=== PATIENT | female | born 1955 | race Caucasian/White ===

== ENCOUNTER 2017-01-12 22:58 | Inpatient (IN) | payer BC ==
[2017-01-12] MEDS ORDERED: Ondansetron 4 MG/2 ML SDV IVPUSH ONE (23:38)
[2017-01-12] MEDS ORDERED: LORazepam 2 MG/ML MDV IVPUSH ONE (23:38)
[2017-01-12] MEDS ORDERED: Sodium Chloride 0.9% 1,000 ML IV SCH (23:45)
[2017-01-13] MEDS ORDERED: Metoclopramide 10 MG/2 ML SDV IV PRN (00:22)
--- NOTE | 2017-01-13 00:37 | EDM.PDOC ---
[id number]: ABD PAIN VOMITING Time Seen by Provider: 01/12/17 23:15 Source of Information: Reports: Patient, Family History Limitations: Reports: No Limitations - History of Present Illness INITIAL COMMENTS - FREE TEXT/NARRATIVE: 61-year-old female was doing fine up until 5 hours ago when she developed lower abdominal cramping followed by intense nausea and vomiting. The pain seems to have resolved but the nausea and vomiting is persistent. No fevers or chills. No abdominal distention, no diarrhea. She did have one normal bowel movement since the pain started. Onset: Sudden (5 hours ago) Duration: Hour(s): (Ongoing for 5 hours) Location: Reports: Abdomen Severity: Moderate Associated Symptoms: Reports: Malaise, Nausea/Vomiting. Denies: Chest Pain, Cough, Fever/Chills, Shortness of Breath Abdomen Pain Score (Numeric/FACES): 3 - Related Data Allergies Allergy/AdvReac Type Severity Reaction Status Date / Time No Known Allergies Allergy Verified 06/23/16 07:52 Home Meds: Home Meds Acetaminophen [Tylenol Arthritis Pain] 650 mg PO Q8H PRN 11/01/14 [History] B Complex With Vitamin C [B-Complex with C] 1 each PO DAILY 11/01/14 [History] Cholecalciferol (Vitamin D3) [Vitamin D3] 10,000 unit PO DAILY 11/01/14 [History ] Cyanocobalamin (Vitamin B-12) [Vitamin B-12] 2,500 mcg SL DAILY 11/01/14 [ History] DULoxetine [Cymbalta] 120 mg PO DAILY 11/01/14 [History] Iron,Carbonyl/Ascorbic Acid [Vitron-C Tablet] 2 each PO DAILY 11/01/14 [History] Multivitamin with Minerals [Multivitamins with Minerals] 1 each PO DAILY [History] [place]-3S/DHA/Epa/Fish Oil/D3 [Fish Oil + D3 Softgel] 1 each PO DAILY 11/01/14 [ History] Thiamine [Vitamin B-1] 100 mg PO BEDTIME 11/01/14 [History] Calcium Citrate 1 tab PO DAILY 06/12/16 [History] traZODone 25 - 100 mg PO BEDTIME PRN 06/12/16 [History] Past Medical History HEENT History: Reports: Impaired Vision Respiratory History: Reports: Sleep Apnea Gastrointestinal History: Reports: GERD Genitourinary History: Reports: None NURSING ADMIN History: Reports: Endometriosis, Other (See Below) 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 Musculoskeletal History: Reports: Fracture, Neck Pain, Chronic, Osteoarthritis Neurological History: Reports: None Psychiatric History: Reports: Anxiety, Depression Endocrine/Metabolic History: Reports: Osteopenia Hematologic History: Reports: Folic Acid Immunologic History: Reports: None Dermatologic History: Reports: None - Infectious Disease History Infectious Disease History: Reports: Chicken Pox - Past Surgical History GI Surgical History: Reports: Bariatric Procedure, Colonoscopy, EGD, Esophageal Dilatation, Roxie Fundoplication Female Surgical History: Reports: Hysterectomy, Salpingo-Oophorectomy Endocrine Surgical History: Reports: None Musculoskeletal Surgical History: Reports: Arthroscopic Knee, Knee Replacement, Shoulder Surgery Social & Family History - Tobacco Use Smoking Status *Q: Never Smoker Years of Tobacco use: 18 Packs/Tins Daily: 1 Used Tobacco, but Quit: Yes Month Tobacco Last Used: 07/1990 Second Hand Smoke Exposure: No - Caffeine Use Caffeine Use: Reports: Coffee - Alcohol Use Days Per Week of Alcohol Use: 0 Number of Drinks Per Day: 4 Total Drinks Per Week: 0 - Recreational Drug Use Recreational Drug Use: No ED ROS GENERAL - Review of Systems Review Of Systems: See Below Constitutional: Reports: Malaise. Denies: Fever, Chills HEENT: Reports: No Symptoms Respiratory: Reports: No Symptoms Cardiovascular: Reports: No Symptoms GI/Abdominal: Reports: Abdominal Pain (Lower abdomen). Denies: Constipation, Diarrhea Skin: Reports: No Symptoms Neurological: Reports: No Symptoms ED EXAM, GI/ABD - Physical Exam Exam: See Below Exam Limited By: No Limitations General Appearance: Alert, Mild Distress (Looks very uncomfortable, actively retching and vomiting) Eyes: Bilateral: Normal Appearance (No jaundice) Respiratory/Chest: No Respiratory Distress, Lungs Clear Cardiovascular: Regular Rate, Rhythm GI/Abdominal: Hypoactive Bowel Sounds, Tenderness (Some tenderness to palpation across the lower abdomen no focal guarding or rebound) Neurological: Alert, Oriented Psychiatric: Anxious Skin Exam: Warm, Dry Course - Vital Signs Last Recorded V/S: Last Vital Signs Temp 96.9 F 01/12/17 23:11 Pulse 76 01/13/17 02:45 Resp 18 01/12/17 23:11 BP 151/83 H 07/05/17 02:45 Pulse Ox 96 01/13/17 03:11 - Orders/Labs/Meds Orders: Active Orders 24 hr Category Date Time Status Abdomen Pelvis w Cont [CT] Stat Exams 01/13/17 00:44 Taken Metoclopramide [Reglan] Med 01/13/17 00:22 Active 10 mg IV ONETIME PRN Sodium Chloride 0.9% [Normal Saline] 1,000 ml Med 01/12/17 23:45 Active IV .BOLUS Medication Orders Hydromorphone HCl (Dilaudid Snuff Grinder 15 Mg In Ns 30 Ml) 0 mg IV ASDIRECTED PRN; Protocol PRN Reason: Pain Sodium Chloride (Normal Saline) 1,000 mls @ 1,000 mls/hr IV .BOLUS ANA Last Admin: 01/12/17 23:51 Dose: 1,000 mls/hr Dextrose/Lactated Ringer's (Dextrose 5%-Lactated Ringers) 1,000 mls @ 200 mls/ hr IV ASDIRECTED ANA Metoclopramide HCl (Reglan) 10 mg IV ONETIME PRN PRN Reason: Vomiting Last Admin: 01/13/17 00:29 Dose: 10 mg Metoclopramide HCl (Reglan) 10 mg IVPUSH Q6H ANA Naloxone HCl (Narcan) 0.4 mg IVPUSH Q2M PRN PRN Reason: Respiratory Distress Labs: Laboratory Tests 01/12/17 01/12/17 Range/Units 23:39 23:39 WBC 10.5 (4.5-11.0) K/uL RBC 4.29 (3.30-5.50) M/uL Hgb 13.8 (12.0-15.0) g/dL Hct 40.4 (36.0-48.0) % MCV 94 (80-98) fL MCH 32 H (27-31) pg MCHC 34 (32-36) % Plt Count (150-400) K/uL Neut % (Auto) 85 H (36-66) % Lymph % (Auto) 8 L (24-44) % [place] % (Auto) 6 (2-6) % Eos % (Auto) 1 L (2-4) % Baso % (Auto) 0 (0-1) % Sodium 140 (140-148) mmol/L Potassium 4.6 (3.6-5.2) mmol/L Chloride 106 (100-108) mmol/L Carbon Dioxide 25 (21-32) mmol/L Anion Gap 8.9 (5.0-14.0) mmol/L BUN 13 (7-18) mg/dL Creatinine 0.6 (0.6-1.0) mg/dL Est Cr Clr Drug Dosing 83.95 mL/min Estimated GFR (MDRD) > 60 (>60) Glucose 157 H (74-106) mg/dL Calcium 8.7 (8.5-10.1) mg/dL Total Bilirubin 0.3 (0.2-1.0) mg/dL AST 24 (15-37) U/L ALT 24 (12-78) U/L Alkaline Phosphatase 51 (46-116) U/L Total Protein 6.4 (6.4-8.2) g/dL Albumin 3.5 (3.4-5.0) g/dL Globulin 2.9 (2.3-3.5) g/dL Albumin/Globulin Ratio 1.2 (1.2-2.2) Amylase 79 (25-115) U/L Lipase 184 (73-393) U/L Meds: Medications Generic Name Dose Route Start Last Admin Trade Name Freq PRN Reason Stop Dose Admin Hydromorphone HCl 0 mg 01/13/17 03:04 Dilaudid Snuff Grinder 15 Mg In Ns 30 Ml IV ASDIRECTED PRN Pain Protocol Sodium Chloride 1,000 mls @ 1,000 mls/hr 01/12/17 23:45 01/12/17 23:51 Normal Saline IV 1,000 mls/hr .BOLUS ANA Administration Dextrose/Lactated Ringer's 1,000 mls @ 200 mls/hr 01/13/17 03:15 Dextrose 5%-Lactated Ringers IV ASDIRECTED ANA Metoclopramide HCl 10 mg 01/13/17 00:22 01/13/17 00:29 Reglan IV 10 mg ONETIME PRN Administration Vomiting Metoclopramide HCl 10 mg 01/13/17 03:15 Reglan IVPUSH Q6H ANA Naloxone HCl 0.4 mg 01/13/17 03:04 Narcan IVPUSH Q2M PRN Respiratory Distress Discontinued Medications Generic Name Dose Route Start Last Admin Trade Name Freq PRN Reason Stop Dose Admin Hydromorphone HCl 0.5 mg 01/13/17 02:32 01/13/17 02:37 Dilaudid IVPUSH 01/13/17 02:33 0.5 mg ONETIME ONE Administration Sodium Chloride 75 mls @ 3 mls/sec 01/13/17 00:53 01/13/17 01:05 Normal Saline IV 01/13/17 00:54 3 mls/sec ASDIRECTED STA Administration Promethazine HCl 12.5 mg/ 50.5 mls @ 200 mls/hr 01/13/17 02:32 01/13/17 02:37 Sodium Chloride IV 01/13/17 02:47 200 mls/hr ONETIME ONE Administration Iopamidol 100 ml 01/13/17 00:52 01/13/17 01:05 Isovue-300 (61%) IV 01/13/17 00:53 100 ml . DIRECTED STA Administration Lorazepam 0.5 mg 01/12/17 23:38 01/12/17 23:50 Ativan IVPUSH 01/12/17 23:39 0.5 mg ONETIME ONE Administration Ondansetron HCl 4 mg 01/12/17 23:38 01/12/17 23:51 Zofran IVPUSH 01/12/17 23:39 4 mg ONETIME ONE Administration - Re-Assessments/Exams Free Text/Narrative Re-Assessment/Exam: 01/13/17 00:36 An IV was started in 1000 mL of normal saline was given along with 4 mg of Zofran and 0.5 mg of Ativan. There was some initial improvement but the patient again began retching so 10 mg of IV Reglan was given. CBC CMP amylase and lipase were obtained. 01/13/17 02:14 The Reglan seemed to hold her persistent nausea and she began to rest but continued to feel nauseated. A CT scan of the abdomen was obtained with IV contrast and confirmed a distal small bowel obstruction. I discussed her case with Dr. Jaime, he accepted her for admission and orders were written. She was resting quietly when discharged to the floor. Departure - Departure Time of Disposition: 02:53 Disposition: Admitted As Inpatient 65 Condition: Fair Clinical Impression: Small bowel obstruction Abdominal pain Qualifiers: Abdominal location: lower abdomen, unspecified Qualified Code(s): R10.30 - Lower abdominal pain, unspecified - Discharge Information - My Orders Last 24 Hours: My Active Orders 01/12/17 23:45 Sodium Chloride 0.9% [Normal Saline] 1,000 ml IV .BOLUS 01/13/17 00:22 Metoclopramide [Reglan] 10 mg IV ONETIME PRN 01/13/17 00:44 Abdomen Pelvis w Cont [CT] Stat - Assessment/Plan Last 24 Hours: My Active Orders 01/12/17 23:45 Sodium Chloride 0.9% [Normal Saline] 1,000 ml IV .BOLUS 01/13/17 00:22 Metoclopramide [Reglan] 10 mg IV ONETIME PRN 01/13/17 00:44 Abdomen Pelvis w Cont [CT] Stat
[2017-01-13] MEDS ORDERED: Iopamidol 612 MG/ML 100 ML Bottle IV STA (00:52)
[2017-01-13] MEDS ORDERED: Sodium Chloride 0.9% 75 ML IV STA (00:53)
[2017-01-13] MEDS ORDERED: Promethazine 12.5 MG in Sodium Chloride 0.9% 50 ML IV ONE (02:32)
[2017-01-13] MEDS ORDERED: HYDROmorphone 0.5 MG/0.5 ML Syringe IVPUSH ONE (02:32)
[2017-01-13] MEDS ORDERED: HYDROmorphone/Normal Saline 15 MG/30 ML PCA IV PRN (03:04)
[2017-01-13] MEDS ORDERED: Naloxone 0.4 MG/ML SDV IVPUSH PRN ×2 (03:04→07:22)
[2017-01-13] MEDS ORDERED: Metoclopramide 10 MG/2 ML SDV IVPUSH SCH (03:15)
[2017-01-13] MEDS ORDERED: Dextrose 5%-Lactated Ringers 1,000 ML IV SCH (03:15)
[2017-01-13] MEDS ORDERED: traZODone 50 MG Tab PO PRN (07:35)
--- NOTE | 2017-01-13 08:23 | PCM.HP ---
H&P History of Present Illness - General Date of Service: 01/13/17 Admit Problem/Dx: Admission Diagnosis/Problem Admission Diagnosis/Problem Abdominal pain Source of Information: Patient History Limitations: Reports: Other (sedated from pain medication) - History of Present Illness Initial Comments - Free Text/Narative: Susan was admitted around 0300 after coming to the ED with sudden onset of left lower quadrant abdominal pain that radiated to her right lower abdomen and then to bilateral upper abdominal quadrants. Pain was a 10/10 on admission. Sharp stabbing and squeezing. Pain now is a O/10. Originally pain was associated with nausea and dry heaves. Currently no associated signs and symptoms. Onset of Symptoms: Reports: Other (01/12/17 ) Duration of Symptoms: Reports: Day(s): (1 ) Location: Reports: Abdomen Quality: Reports: Pressure, Sharp, Stabbing Severity: Severe Improves with: Reports: Medication Worsens with: Reports: None Context: Reports: Other (sleepy ) Associated Symptoms: Reports: Other (nausea) Abdomen Pain Score (Numeric/FACES): 0 - Related Data Allergies/Adverse Reactions: Allergies Allergy/AdvReac Type Severity Reaction Status Date / Time No Known Allergies Allergy Verified 06/23/16 07:52 Home Medications: Home Meds Acetaminophen [Tylenol Arthritis Pain] 650 mg PO Q8H PRN 11/01/14 [History] B Complex With Vitamin C [B-Complex with C] 1 each PO DAILY 11/01/14 [History] Cholecalciferol (Vitamin D3) [Vitamin D3] 10,000 unit PO DAILY 11/01/14 [History ] Cyanocobalamin (Vitamin B-12) [Vitamin B-12] 2,500 mcg SL DAILY 11/01/14 [ History] DULoxetine [Cymbalta] 120 mg PO DAILY 11/01/14 [History] Iron,Carbonyl/Ascorbic Acid [Vitron-C Tablet] 2 each PO DAILY 11/01/14 [History] Multivitamin with Minerals [Multivitamins with Minerals] 1 each PO DAILY [History] [place]-3S/DHA/Epa/Fish Oil/D3 [Fish Oil + D3 Softgel] 1 each PO DAILY 11/01/14 [ History] Thiamine [Vitamin B-1] 100 mg PO BEDTIME 11/01/14 [History] Calcium Citrate 1 tab PO DAILY 06/12/16 [History] traZODone 25 - 100 mg PO BEDTIME PRN 06/12/16 [History] Past Medical History HEENT History: Reports: Impaired Vision Respiratory History: Reports: Sleep Apnea Gastrointestinal History: Reports: GERD Genitourinary History: Reports: None FLOORS BUFFER History: Reports: Endometriosis, Other (See Below) 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 Musculoskeletal History: Reports: Fracture, Neck Pain, Chronic, Osteoarthritis Neurological History: Reports: None Psychiatric History: Reports: Anxiety, Depression Endocrine/Metabolic History: Reports: Osteopenia Hematologic History: Reports: Folic Acid Immunologic History: Reports: None Dermatologic History: Reports: None - Infectious Disease History Infectious Disease History: Reports: Chicken Pox - Past Surgical History GI Surgical History: Reports: Bariatric Procedure, Colonoscopy, EGD, Esophageal Dilatation, Roxie Fundoplication Female Surgical History: Reports: Hysterectomy, Salpingo-Oophorectomy Endocrine Surgical History: Reports: None Musculoskeletal Surgical History: Reports: Arthroscopic Knee, Knee Replacement, Shoulder Surgery Social & Family History - Tobacco Use Smoking Status *Q: Never Smoker Years of Tobacco use: 18 Packs/Tins Daily: 1 Used Tobacco, but Quit: Yes Month Tobacco Last Used: 07/1990 Second Hand Smoke Exposure: No - Caffeine Use Caffeine Use: Reports: Coffee - Alcohol Use Days Per Week of Alcohol Use: 0 Number of Drinks Per Day: 4 Total Drinks Per Week: 0 - Recreational Drug Use Recreational Drug Use: No H&P Review of Systems - Review of Systems: Review Of Systems: ROS reveals no pertinent complaints other than HPI. General: Reports: Other (sleepy from the pain medication) HEENT: Reports: No Symptoms Pulmonary: Reports: No Symptoms Cardiovascular: Reports: No Symptoms Gastrointestinal: Reports: Other (no pain right now) Genitourinary: Reports: No Symptoms Musculoskeletal: Reports: No Symptoms Skin: Reports: Wound (superficial dog bite right upper arm from her dog yesterday. Wound is weeping a pink serous drainage.) Psychiatric: Reports: No Symptoms Neurological: Reports: No Symptoms Hematologic/Lymphatic: Reports: No Symptoms Immunologic: Reports: No Symptoms Exam - Exam Exam: See Below - Vital Signs Vital Signs: Last Vital Signs Temp 99 F 01/13/17 07:15 Pulse 87 01/13/17 07:15 Resp 17 01/13/17 07:15 BP 102/62 01/13/17 07:15 Pulse Ox 90 L 01/13/17 07:24 Weight: 173 lb 1.006 oz - Exam Quality Assessment: DVT Prophylaxis General: Sedated, Lethargic HEENT: Pupils Equal Neck: Supple, Trachea Midline Lungs: Clear to Auscultation, Normal Respiratory Effort Cardiovascular: Regular Rate, Regular Rhythm Abdomen: Soft (and nontender) (Female) Exam: Deferred Rectal (Female) Exam: Deferred Back Exam: Normal Inspection Extremities: Normal Inspection Skin: Wound (superficial dog bite right upper arm. ) Neurological: Cranial Nerves Intact, Reflexes Equal Bilateral Neuro Extensive - Mental Status: Other (sedated from pain medication) Neuro Extensive - Motor, Sensory, Reflexes: CN II-XII Intact Psychiatric: Other (as above) - Patient Data Lab Results Last 24 hrs: Laboratory Results - last 24 hr 01/13/17 01/13/17 Range/Units 04:20 04:20 WBC 7.3 (4.5-11.0) K/uL RBC 4.06 (3.30-5.50) M/uL Hgb 12.8 (12.0-15.0) g/dL Hct 39.1 (36.0-48.0) % MCV 96 (80-98) fL MCH 32 H (27-31) pg MCHC 33 (32-36) % Plt Count 191 (150-400) K/uL Lactic Acid 1.6 (0.4-2.0) mmol/L Result Diagrams: 01/13/17 04:20 01/12/17 23:39 *Q Meaningful Use (ADM) - VTE *Q VTE Criteria *Q: - Stroke *Q Stroke Criteria *Q: - AMI *Q AMI Criteria *Q: Problem List Initiated/Reviewed/Updated: Yes Orders Last 24hrs: Active Orders 24 hr Category Date Time Status Communication Order [RC] STAT Care 01/13/17 03:04 Active Notify Provider [RC] PRN Care 01/13/17 03:04 Active LEAD SECURITY OFFICER Record [RC] PER UNIT ROUTINE Care 01/13/17 03:04 Active Pulse Oximetry [RC] CONTINUOUS Care 01/13/17 03:04 Active Vital Signs [RC] Q4H Care 01/13/17 03:02 Active NPO Now [Nothing per Oral Now Diet] [DIET] Diet 01/13/17 Breakfast Active Abdomen 2V AP Flat Upright [CR] DAILY Exams 01/14/17 04:00 Ordered Abdomen 2V AP Flat Upright [CR] DAILY Exams 01/15/17 04:00 Ordered Abdomen 2V AP Flat Upright [CR] DAILY Exams 01/16/17 04:00 Ordered DULoxetine [Cymbalta] Med 01/13/17 09:00 Active 120 mg PO DAILY Dextrose 5%-Lactated Ringers 1,000 ml Med 01/13/17 07:34 Active IV ASDIRECTED HYDROmorphone/Normal Saline [Dilaudid LEAD SECURITY OFFICER 15 MG in NS Med 01/13/17 03:04 Active 30 ML] See Protocol IV ASDIRECTED PRN MVI, Adult with Vitamin K [Infuvite Adult] 10 ml Med 01/13/17 10:00 Active Thiamine [Vitamin B-1] 100 mg Magnesium Sulfate [Magnesium Sulfate 50%] 2 gm Folic Acid 1 mg Lactated Ringers [Ringers, Lactated] 1,000 ml IV ONETIME Metoclopramide [Reglan] Med 01/13/17 06:00 Active 10 mg IVPUSH Q6H Naloxone [Narcan] Med 01/13/17 07:22 Active 0.1 mg IVPUSH Q5M PRN traZODone Med 01/13/17 07:35 Active 25 - 100 mg PO BEDTIME PRN Medication Discontinuation Instructions [OM.PC] Stat Oth 01/13/17 03:04 Ordered Code Status [Resuscitation Status] Routine Resus Stat 01/13/17 03:01 Ordered Medication Orders Duloxetine HCl (Cymbalta) 120 mg PO DAILY ANA Hydromorphone HCl (Dilaudid Purchasing Intern 15 Mg In Ns 30 Ml) 0 mg IV ASDIRECTED PRN; Protocol PRN Reason: Pain Last Admin: 01/13/17 05:08 Dose: 15 mg Dextrose/Lactated Ringer's (Dextrose 5%-Lactated Ringers) 1,000 mls @ 150 mls/ hr IV ASDIRECTED ANA Multivitamins/Minerals 10 ml/Thiamine HCl 100 mg/ Magnesium Sulfate 2 gm/ Folic Acid 1 mg / Lactated Ringer's 1,015.2 mls @ 150 mls/hr IV ONETIME ONE Stop: 01/13/17 16:46 Metoclopramide HCl (Reglan) 10 mg IVPUSH Q6H ANA Naloxone HCl (Narcan) 0.1 mg IVPUSH Q5M PRN PRN Reason: Respiratory Distress Trazodone HCl (Trazodone) 25 - 100 mg PO BEDTIME PRN PRN Reason: Sleep Assessment/Plan Comment:: Assessment: Partial Small Bowel Obstruction Plan: Flat and Upright of Abdominal X Rays in AM Home meds were restarted Ice chips and sips of water with medication Change dressing on dog bite bid If abdominal X Ray is negative in AM, pain hasn't returned and patient able to eat will be discharged tomorrow. Estephanie ROSALES C
[2017-01-13] MEDS ORDERED: MVI, Adult with Vitamin K 10 ML, Thiamine 100 MG, Magnesium Sulfate 2 GM, Folic Acid 1 ... IV ONE ×10 (09:00→10:00)
[2017-01-13] MEDS: Metoclopramide 10 MG/2 ML SDV IVPUSH SCH ×3 (09:42→17:11)
[2017-01-13] MEDS: DULoxetine 30 MG Cap PO SCH (09:43)
[2017-01-13] MEDS: Dextrose 5%-Lactated Ringers 1,000 ML IV SCH ×2 (15:57→22:45)
[2017-01-14] MEDS: Metoclopramide 10 MG/2 ML SDV IVPUSH SCH ×2 (00:17→05:28)
[2017-01-14] MEDS: Dextrose 5%-Lactated Ringers 1,000 ML IV SCH (05:28)
[2017-01-14 07:20] VITALS: BP 135/96
[2017-01-14] MEDS: DULoxetine 30 MG Cap PO SCH (08:02)
--- NOTE | 2017-01-14 08:13 | PCM.DCSUM1 ---
Discharge Summary - Hospital Course Free Text/Narrative:: Susan was admitted with abdominal pain on 01/12/17. She was treated conservatively with IV fluids, NPO and rest. She had a large BM this am. She has been pain free, activity good, vital signs stable and ready to be discharged to home. HPI Initial Comments: HENT: Negative NECK: Supple negative for lymphadenopathy HEART: RRR without murmur LUNGS: Clear in upper and lower right and left lobes ABD: Soft and nontender EXT: Negative SKIN: Clear NEURO: Cranial Nerves II to XII intact PSYCH: Mood and affect appropriate - Discharge Data Discharge Date: 01/14/17 Discharge Disposition: Home, Self-Care 01 Condition: Good - Patient Instructions Diet: Drink 8-10+ Glasses/Day, Full Liquid Diet Activity: As Tolerated Showering/Bathing: November Shower Notify Provider of: Increased Pain, Nausea and/or Vomiting - Discharge Plan Home Medications: Home Meds Acetaminophen [Tylenol Arthritis Pain] 650 mg PO Q8H PRN 11/01/14 [History] B Complex With Vitamin C [B-Complex with C] 1 each PO DAILY 11/01/14 [History] Cholecalciferol (Vitamin D3) [Vitamin D3] 10,000 unit PO DAILY 11/01/14 [History ] Cyanocobalamin (Vitamin B-12) [Vitamin B-12] 2,500 mcg SL DAILY 11/01/14 [ History] DULoxetine [Cymbalta] 120 mg PO DAILY 11/01/14 [History] Iron,Carbonyl/Ascorbic Acid [Vitron-C Tablet] 2 each PO DAILY 11/01/14 [History] Multivitamin with Minerals [Multivitamins with Minerals] 1 each PO DAILY [History] [place]-3S/DHA/Epa/Fish Oil/D3 [Fish Oil-Vit D3 Softgel] 1 each PO DAILY 11/01/14 [History] Thiamine [Vitamin B-1] 100 mg PO BEDTIME 11/01/14 [History] Calcium Citrate 1 tab PO DAILY 06/12/16 [History] traZODone 25 - 100 mg PO BEDTIME PRN 06/12/16 [History] Patient Handouts: Constipation, Adult Referrals: Estephanie Sanford PA-C [Physician Director Of Psychology] - 01/20/17 11:00 am PCP,None [Primary Care Provider] - - Discharge Summary/Plan Comment DC Time >30 min.: Yes - Patient Data Vitals - Most Recent: Last Vital Signs Temp 98.7 F 01/14/17 07:18 Pulse 71 01/14/17 07:18 Resp 16 01/14/17 07:18 BP 135/96 H 01/14/17 07:18 Pulse Ox 93 L 01/14/17 07:48 Weight - Most Recent: 173 lb 1.006 oz I&O - Last 24 hours: Intake & Output 01/13/17 01/14/17 01/14/17 22:59 06:59 14:59 Intake Total 2229 1755 Output Total 400 Balance 1829 1755 Med Orders - Current: Current Medications Duloxetine HCl (Cymbalta) 120 mg PO DAILY ANA Last Admin: 01/14/17 08:02 Dose: 120 mg Metoclopramide HCl (Reglan) 10 mg IVPUSH Q6H ANA Last Admin: 01/14/17 05:28 Dose: 10 mg Naloxone HCl (Narcan) 0.1 mg IVPUSH Q5M PRN PRN Reason: Respiratory Distress Trazodone HCl (Trazodone) 25 - 100 mg PO BEDTIME PRN PRN Reason: Sleep Discontinued Medications Hydromorphone HCl (Dilaudid) 0.5 mg IVPUSH ONETIME ONE Stop: 01/13/17 02:33 Last Admin: 01/13/17 02:37 Dose: 0.5 mg Hydromorphone HCl (Dilaudid Fur Stylist 15 Mg In Ns 30 Ml) 0 mg IV ASDIRECTED PRN; Protocol PRN Reason: Pain Last Admin: 01/13/17 05:08 Dose: 15 mg Sodium Chloride (Normal Saline) 1,000 mls @ 1,000 mls/hr IV .BOLUS ANA Last Admin: 01/12/17 23:51 Dose: 1,000 mls/hr Sodium Chloride (Normal Saline) 75 mls @ 3 mls/sec IV ASDIRECTED STA Stop: 01/13/17 00:54 Last Admin: 01/13/17 01:05 Dose: 3 mls/sec Promethazine HCl 12.5 mg/ (Sodium Chloride) 50.5 mls @ 200 mls/hr IV ONETIME ONE Stop: 01/13/17 02:47 Last Admin: 01/13/17 02:37 Dose: 200 mls/hr Dextrose/Lactated Ringer's (Dextrose 5%-Lactated Ringers) 1,000 mls @ 200 mls/ hr IV ASDIRECTED ANA Dextrose/Lactated Ringer's (Dextrose 5%-Lactated Ringers) 1,000 mls @ 150 mls/ hr IV ASDIRECTED [facility] Last Admin: 01/14/17 05:28 Dose: 150 mls/hr Multivitamins/Minerals 10 ml/Thiamine HCl 100 mg/ Magnesium Sulfate 2 gm/ Folic Acid 1 mg / Lactated Ringer's 1,015.2 mls @ 150 mls/hr IV ONETIME ONE Stop: 01/13/17 16:46 Multivitamins/Minerals 10 ml/Thiamine HCl 100 mg/ Magnesium Sulfate 2 gm/ Folic Acid 1 mg / Lactated Ringer's 1,015.2 mls @ 150 mls/hr IV ONETIME ONE Stop: 01/13/17 15:46 Last Admin: 01/13/17 09:40 Dose: 150 mls/hr Iopamidol (Isovue-300 (61%)) 100 ml IV . DIRECTED STA Stop: 01/13/17 00:53 Last Admin: 01/13/17 01:05 Dose: 100 ml Lorazepam (Ativan) 0.5 mg IVPUSH ONETIME ONE Stop: 01/12/17 23:39 Last Admin: 01/12/17 23:50 Dose: 0.5 mg Metoclopramide HCl (Reglan) 10 mg IV ONETIME PRN PRN Reason: Vomiting Last Admin: 01/13/17 00:29 Dose: 10 mg Metoclopramide HCl (Reglan) 10 mg IVPUSH Q6H [facility] Last Admin: 01/13/17 05:02 Dose: 10 mg Naloxone HCl (Narcan) 0.4 mg IVPUSH Q2M PRN PRN Reason: Respiratory Distress Ondansetron HCl (Zofran) 4 mg IVPUSH ONETIME ONE Stop: 01/12/17 23:39 Last Admin: 01/12/17 23:51 Dose: 4 mg *Q Meaningful Use (DIS) - VTE *Q VTE Criteria *Q: - Stroke *Q Stroke Criteria *Q: - AMI *Q AMI Criteria *Q:
--- NOTE | 2017-01-14 11:35 | CR ---
Large amount of fecal residual. No dilated loops of large or small bowel.
== END 2017-01-14 11:17 | disposition home or self-care (01) | DRG 247 ==
LOC: JP.ED 22:58 → JP.MS 01-13 02:11
PROVIDERS: ADMIT Surgery; ATTEND Surgery
DX: K56.69 Other intestinal obstruction (principal); K21.9 Gastro-esophageal reflux disease without esophagitis; F41.8 Other specified anxiety disorders; F32.9 Major depressive disorder, single episode, unspecified; M19.90 Unspecified osteoarthritis, unspecified site; G24.4 Idiopathic orofacial dystonia; N80.9 Endometriosis, unspecified; G47.30 Sleep apnea, unspecified; Z90.722 Acquired absence of ovaries, bilateral; Z90.710 Acquired absence of both cervix and uterus; Z98.84 Bariatric surgery status
CPT/HCPCS: 36415; 74020; 74020-26; 74177; 80053; 82150; 83605; 83690; 85025; 85027; 94762; 96361; 96374; 96375; 99285-25; A9270-GY; J1170; J2060; J2405; J2550; J2765; J3411; J3475; J3490; J7030; J7040; J7042; J7050; J7120; Q9967

== ENCOUNTER 2017-06-30 06:27 | Day surgery (SDC) | payer BC ==
[2017-06-30] MEDS ORDERED: Bupivacaine 0.5% 50 ML MDV ONE (06:52)
[2017-06-30] MEDS ORDERED: Lactated Ringers 1,000 ML IV SCH (07:15)
[2017-06-30] MEDS ORDERED: Propofol 200 MG/20 ML SDV ONE (07:29)
[2017-06-30] MEDS ORDERED: fentaNYL 100 MCG/2 ML SDV ONE (07:29)
[2017-06-30] MEDS ORDERED: Midazolam 1 MG/ML 2 ML SDV ONE (07:29)
[2017-06-30] MEDS ORDERED: ceFAZolin 2 GM in Premix Bag 1 BAG IV ONE (07:30)
[2017-06-30] MEDS ORDERED: Lidocaine 0.5% 50 ML SDV ONE (07:31)
--- NOTE | 2017-06-30 09:22 | OR ---
DATE OF PROCEDURE: 06/30/2017 PREOPERATIVE DIAGNOSIS: Left long finger ganglion cyst. POSTOPERATIVE DIAGNOSIS: Left long finger ganglion cyst. PROCEDURE: Left long finger ganglion cyst excision. ANESTHESIA: [place] block plus conscious sedation. FLUIDS: Lactated Ringer solution. ESTIMATED BLOOD LOSS: Zero. COMPLICATIONS: None. SPECIMEN: None. DISCHARGE DISPOSITION: Stable to PACU. INDICATION: The patient was seen preoperatively in the clinic. She had a ganglion cyst for some time, which was now bothering her. Risks and benefits of the procedure were explained to the patient and informed consent was obtained. DETAILS OF PROCEDURE: The patient was seen preoperatively by myself and the Anesthesia staff at the preoperative holding area, where the operative site was marked. She was brought to the operative suite by the Anesthesia staff, where [place] block plus conscious sedation was administered. The left upper extremity was prepped and draped in a sterile manner. Time-out was called identifying the correct patient, the correct procedure, the correct site, and that antibiotics had been begun within an appropriate period of time. A longitudinal incision was made over the cyst on its ulnar aspect, and then down to the level of the distal interphalangeal joint on the radial side. I undermined the cyst with tenotomies. There was very thin skin over the cyst. I followed the cyst down to the distal interphalangeal joint and then resected it at its origin. We then copiously irrigated with saline and then closed it with 3-0 nylon followed by a sterile dressing. The tourniquet was then let down by Anesthesia staff, and the patient was then taken to the PACU in a stable condition. Ac Jaime DO /[id number]
[2017-06-30 10:16] VITALS: BP 120/78
== END 2017-06-30 10:18 | disposition home or self-care (01) ==
LOC: JP.SDS 06:27
PROVIDERS: ATTEND Orthopaedic Surgery
DX: M67.442 Ganglion, left hand (principal); G47.33 Obstructive sleep apnea (adult) (pediatric); K21.9 Gastro-esophageal reflux disease without esophagitis; F41.9 Anxiety disorder, unspecified; F32.9 Major depressive disorder, single episode, unspecified; Z98.84 Bariatric surgery status; Z79.899 Other long term (current) drug therapy; Z90.710 Acquired absence of both cervix and uterus
CPT/HCPCS: 26160; J0690; J2250; J2704; J3010; J7120; 88304

== ENCOUNTER 2019-02-02 05:32 | Day surgery (SDC) | payer OTHER ==
[2019-02-02] MEDS ORDERED: Dextrose 5%-Lactated Ringers 1,000 ML IV SCH (06:00)
[2019-02-02] MEDS ORDERED: Meropenem 500 MG in Sodium Chloride 0.9% 50 ML IV ONE (07:00)
[2019-02-02] MEDS ORDERED: Midazolam 1 MG/ML 2 ML SDV ONE (07:04)
[2019-02-02] MEDS ORDERED: Propofol 200 MG/20 ML SDV ONE (07:04)
[2019-02-02] MEDS ORDERED: fentaNYL 100 MCG/2 ML SDV ONE (07:04)
[2019-02-02] MEDS ORDERED: Glycopyrrolate 0.2 MG/ML 2 ML SDV IVPUSH ONE (07:15)
[2019-02-02 08:48] VITALS: BP 128/74; PULSE 77
--- NOTE | 2019-02-06 13:20 | OR ---
DATE OF PROCEDURE: 02/02/2019 PREOPERATIVE DIAGNOSES: 1. History of possible reflux symptoms, status post Xochitl-en-Y gastric bypass. 2. Family and personal history of colon neoplasia. POSTOPERATIVE DIAGNOSES: 1. Normal examination status post Xochitl-en-Y gastric bypass. 2. Normal colonoscopy. OPERATIVE PROCEDURES: 1. Upper gastrointestinal endoscopy with biopsies of gastric pouch for CLOtest. 2. Flexible colonoscopy. ANESTHESIA: IV sedation. INDICATION FOR PROCEDURE: This is a 63-year-old referred for upper and lower endoscopy. The patient is status post Xochitl-en-Y gastric bypass and does have symptoms of reflux disease. She has been presently on Nexium 20 mg p.o. b.i.d. She also has a family history of colon carcinoma, personal history of colon polyps. She is to undergo a followup screening colonoscopy. Potential risks of procedure including bleeding and perforation were discussed, and the patient wishes to proceed. DETAILS OF PROCEDURE: The patient was taken to the operating room and placed in a left lateral decubitus position. IV sedation was administered, after which, the upper GI endoscope was passed orally through the length of the esophagus, into the gastric pouch, and from there through the gastrojejunostomy roughly 20 cm into the Xochitl limb. Findings include normal examination of the entire upper GI exam including the esophagus, gastric pouch, esophagogastric junction, gastrojejunostomy, and visualized portions of the Xochitl limb. At this point, biopsies were obtained from the gastric pouch, sent for CLOtest for H. pylori. Minimal bleeding from biopsy sites was seen, and the procedure then concluded. Attention was then taken to the colonoscopy. Initial digital rectal exam was performed, which was unremarkable. Colonoscope was passed into the rectum with retroflexion revealing uncomplicated hemorrhoidal columns. The scope was eventually passed to the level of the cecum. Prep was fairly good with otherwise being a small amount of liquid stool present. To that level, there were no areas of diverticular disease. No areas of colitis. No polyps or other signs of neoplasia. Scope was then withdrawn. The above findings reconfirmed, and the procedure concluded. The patient was taken to the recovery room in satisfactory condition. At this point, the patient will remain on Nexium 20 mg b.i.d. If she has worsening symptoms of reflux, one might consider Levsin for treatment of esophageal spasm. Otherwise, the patient will have a repeat colonoscopy in 5 years given the personal and family history of colonic neoplasia. Thang Jaime MD /[id number]
== END 2019-02-02 09:25 | disposition home or self-care (01) ==
LOC: JP.SDS 05:32
PROVIDERS: ATTEND Surgery
DX: Z12.11 Encounter for screening for malignant neoplasm of colon (principal); K21.9 Gastro-esophageal reflux disease without esophagitis; K64.9 Unspecified hemorrhoids; G47.33 Obstructive sleep apnea (adult) (pediatric); Z98.84 Bariatric surgery status; Z80.0 Family history of malignant neoplasm of digestive organs
CPT/HCPCS: 43239; 45378; 87081; J2185; J2250; J2704; J3010; J3490; J7042; J7050

== ENCOUNTER 2020-05-18 08:47 | Inpatient (IN) | payer MEDICARE ==
[2020-05-18] MEDS ORDERED: Ondansetron 4 MG/2 ML SDV IVPUSH ONE (09:30)
[2020-05-18] MEDS ORDERED: HYDROmorphone 0.5 MG/0.5 ML Syringe IVPUSH ONE (09:30)
--- NOTE | 2020-05-18 09:32 | EDM.PDOC ---
ED HPI GENERAL MEDICAL PROBLEM - General Chief Complaint: Abdominal Pain Stated Complaint: ABDOMEN PAIN Time Seen by Provider: 05/18/20 09:00 Source of Information: Reports: Patient History Limitations: Reports: No Limitations - History of Present Illness INITIAL COMMENTS - FREE TEXT/NARRATIVE: 64-year-old female with intense upper abdominal pain, nausea and vomiting for the past 12 hours. It started across her mid and lower abdomen after supper last evening around 8 PM, overnight she developed nausea and vomiting, retching, and now has upper abdominal as well as substernal chest pain with emesis. No radiation to the back, no shortness of breath, no fevers or chills but it does hurt to breathe. She had 1 bowel movement this morning. She had similar symptoms a few weeks ago but it resolved spontaneously after about 8 hours. She also has a history of small bowel obstruction that resolved while in the hospital, this feels different. Onset: Gradual (Started gradually after supper last night but intensified rapidly over an hour) Duration: Hour(s): (Symptoms for 12 hours) Location: Reports: Chest, Abdomen Quality: Reports: Sharp, Stabbing Associated Symptoms: Reports: Chest Pain, Malaise, Nausea/Vomiting. Denies: Cough, Shortness of Breath Upper Abdomen Pain Score (Numeric/FACES): 10 - Related Data Allergies Allergy/AdvReac Type Severity Reaction Status Date / Time No Known Allergies Allergy Verified 05/18/20 09:00 Home Meds: Home Meds Acetaminophen [Tylenol Arthritis Pain] 650 mg PO Q6H PRN 11/01/14 [History] B-Complex with Vitamin C [B-Complex with C] 1 each PO DAILY 11/01/14 [History] Cholecalciferol (Vitamin D3) [Vitamin D3] 5,000 unit PO DAILY 11/01/14 [History] Cyanocobalamin (Vitamin B-12) [Vitamin B-12] 2,500 mcg SL DAILY 11/01/14 [History] Iron,Carbonyl/Ascorbic Acid [Vitron-C Tablet] 2 each PO DAILY 11/01/14 [History] Thiamine [Vitamin B-1] 100 mg PO BEDTIME 11/01/14 [History] Calcium Citrate 1 tab PO BID 06/12/16 [History] Multivitamin [Multi-Vitamin Daily] 1 tab PO DAILY 04/13/17 [History] Esomeprazole [NexIUM] 40 mg PO DAILY 02/01/19 [History] Ibandronate Sodium [Boniva] 3 mg IV [id number] 02/01/19 [History] Naltrexone 25 mg PO DAILY 05/18/20 [History] Sertraline [Zoloft] 50 mg PO DAILY 05/18/20 [History] Past Medical History HEENT History: Reports: Impaired Vision Respiratory History: Reports: Sleep Apnea, Other (See Below) Other Respiratory History: c pap Gastrointestinal History: Reports: GERD Genitourinary History: Reports: None FUSE MAKER History: Reports: Endometriosis, Other (See Below) 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 Musculoskeletal History: Reports: Back Pain, Chronic, Fracture, Neck Pain, Chronic, Osteoarthritis, Other (See Below) Other Musculoskeletal History: right hip pain Neurological History: Reports: Headaches, Chronic Psychiatric History: Reports: Anxiety, Depression Endocrine/Metabolic History: Reports: Osteopenia Hematologic History: Reports: B12 Deficiency, Folic Acid, Iron Deficiency Immunologic History: Reports: None Dermatologic History: Reports: None - Infectious Disease History Infectious Disease History: Reports: Chicken Pox - Past Surgical History Head Surgeries/Procedures: Reports: None HEENT Surgical History: Reports: None Cardiovascular Surgical History: Reports: Other (See Below) Other Cardiovascular Surgeries/Procedures: angiogram Respiratory Surgical History: Reports: Lung Biopsies GI Surgical History: Reports: Bariatric Procedure, Colonoscopy, EGD, Esophageal Dilatation, [place]ie Fundoplication Female Surgical History: Reports: Hysterectomy, Salpingo-Oophorectomy Endocrine Surgical History: Reports: None Neurological Surgical History: Reports: None Musculoskeletal Surgical History: Reports: Arthroscopic Knee, Ganglion Cyst, Knee Replacement, Shoulder Surgery Other Musculoskeletal Surgeries/Procedures:: Knee replacement x2 Dermatological Surgical History: Reports: None Social & Family History - Family History Family Medical History: Noncontributory - Tobacco Use Tobacco Use Status *Q: Never Tobacco User Second Hand Smoke Exposure: No - Caffeine Use Caffeine Use: Reports: Coffee - Recreational Drug Use Recreational Drug Use: No ED ROS GENERAL - Review of Systems Review Of Systems: See Below Constitutional: Reports: Malaise. Denies: Fever, Chills HEENT: Reports: No Symptoms Respiratory: Reports: Pleuritic Chest Pain (Increases her upper abdominal pain with deep breath). Denies: Shortness of Breath Cardiovascular: Reports: Chest Pain (Substernal especially with emesis) GI/Abdominal: Reports: Abdominal Pain, Nausea, Vomiting. Denies: Constipation, Diarrhea Skin: Reports: No Symptoms ED EXAM, GI/ABD - Physical Exam Exam: See Below Exam Limited By: No Limitations General Appearance: Alert, Moderate Distress Eyes: Bilateral: Normal Appearance Head: Atraumatic Respiratory/Chest: No Respiratory Distress, Lungs Clear Cardiovascular: Regular Rate, Rhythm. No: Tachycardia GI/Abdominal Exam: Soft, Tender (Fairly tender across her lower abdomen but no focal guarding or rebound), Abnormal Bowel Sounds (Hypoactive bowel sounds, heard only in the upper and right abdomen) Neurological: Alert, Oriented Psychiatric: Normal Affect, Normal Mood Skin Exam: Warm, Dry Course - Vital Signs Last Recorded V/S: Last Vital Signs Temp 97.3 F 05/18/20 15:00 Pulse 71 05/18/20 15:00 Resp 16 05/18/20 15:00 BP 114/60 05/18/20 15:00 Pulse Ox 96 05/18/20 15:00 - Orders/Labs/Meds Orders: Active Orders 24 hr Category Date Time Status Iopamidol [Isovue-300 (61%)] Med 05/18/20 10:22 Active 100 ml IV . DIRECTED PRN Medication Orders Acetaminophen (Tylenol) 650 mg PO Q6H PRN PRN Reason: PAIN Calcium Carbonate (Caltrate 600+D 1500 Mg-400 Units) 1 tab PO BID ANA Cholecalciferol (Vitamin D3) 125 mcg PO DAILY ANA Cyanocobalamin (Vitamin B12) 2,500 mcg PO DAILY NAA Diphenhydramine HCl (Benadryl) 25 - 50 mg PO Q4H PRN PRN Reason: Itching Diphenhydramine HCl (Benadryl) 25 - 50 mg IVPUSH Q4H PRN PRN Reason: Itching Fentanyl (Sublimaze) 10 - 30 mcg IVPUSH Q1H PRN PRN Reason: Pain Multivitamins/Minerals 10 ml/Thiamine HCl 200 mg/ Chromium/Copper/Manganese/Seleni/Zn 1 ml/ Sodium Chloride 1,013 mls @ 125 mls/hr IV ONETIME ONE Stop: 05/19/20 00:06 Last Admin: 05/18/20 14:51 Dose: 125 mls/hr Documented by: LIZETTE Sodium Chloride (Normal Saline) 1,000 mls @ 125 mls/hr IV ASDIRECTED [facility] Iopamidol (Isovue-300 (61%)) 100 ml IV . DIRECTED PRN PRN Reason: RADIOLOGY EXAM Stop: 05/19/20 10:23 Last Admin: 05/18/20 10:49 Dose: 100 ml Documented by: ALVIN Iron/Vitamin C (Vitron-C) 2 tab PO DAILY [facility] Morphine Sulfate (Morphine) 1 - 3 mg IVPUSH Q1H PRN PRN Reason: Pain Last Admin: 05/18/20 14:56 Dose: 2 mg Documented by: LIZETTE Multivitamins/Minerals (Thera M Plus) 1 tab PO DAILY [facility] Naltrexone HCl (Naltrexone) 25 mg PO DAILY [facility] Nicotine (Habitrol) 14 mg TRDERM Q24H PRN PRN Reason: SMOKING CESSATION Ondansetron HCl (Zofran) 4 mg IVPUSH Q4H PRN PRN Reason: Nausea Last Admin: 05/18/20 15:09 Dose: 4 mg Documented by: LIZETTE Pantoprazole Sodium (Protonix) 40 mg PO ACBREAKFAST [facility] Promethazine HCl (Phenergan) 12.5 - 25 mg IV Q8H PRN PRN Reason: Nausea Scopolamine (Transderm-Scop) 1.5 mg TOP Q72H PRN PRN Reason: Nausea Sertraline HCl (Zoloft) 50 mg PO DAILY [facility] Thiamine HCl (Vitamin B-1) 100 mg PO BEDTIME [facility] Vitamin B Complex (Vitamin B Complex) 1 each PO DAILY [facility] Labs: Laboratory Tests 05/18/20 05/18/20 05/18/20 Range/Units 09:41 09:41 09:41 WBC 5.5 (4.5-11.0) K/uL RBC 4.75 (3.30-5.50) M/uL Hgb 14.2 (12.0-15.0) g/dL Hct 43.6 (36.0-48.0) % MCV 92 (80-98) fL MCH 30 (27-31) pg MCHC 33 (32-36) % Plt Count 208 (150-400) K/uL Neut % (Auto) 91 H (36-66) % Lymph % (Auto) 7 L (24-44) % [place] % (Auto) 2 (2-6) % Eos % (Auto) 0 L (2-4) % Baso % (Auto) 0 (0-1) % Sodium 138 L (140-148) mmol/L Potassium 3.7 (3.6-5.2) mmol/L Chloride 102 (100-108) mmol/L Carbon Dioxide 26 (21-32) mmol/L Anion Gap 13.7 (5.0-14.0) mmol/L BUN 18 (7-18) mg/dL Creatinine 0.7 (0.6-1.0) mg/dL Est Cr Clr Drug Dosing 69.19 mL/min Estimated GFR (MDRD) > 60 (>60) Glucose 153 H (74-106) mg/dL Lactic Acid 1.5 (0.4-2.0) mmol/L Calcium 8.5 (8.5-10.1) mg/dL Total Bilirubin 0.4 (0.2-1.0) mg/dL AST 25 (15-37) U/L ALT 42 (12-78) U/L Alkaline Phosphatase 53 (46-116) U/L Total Protein 6.5 (6.4-8.2) g/dL Albumin 3.8 (3.4-5.0) g/dL Globulin 2.7 (2.3-3.5) g/dL Albumin/Globulin Ratio 1.4 (1.2-2.2) Lipase 142 (73-393) U/L Meds: Medications Generic Name Dose Route Start Last Admin Trade Name Freq PRN Reason Stop Dose Admin Acetaminophen 650 mg 05/18/20 14:55 Tylenol PO Q6H PRN PAIN Calcium Carbonate 1 tab 05/18/20 16:00 Caltrate 600+D 1500 Mg-400 Units PO BID ANA Cholecalciferol 125 mcg 05/18/20 16:00 Vitamin D3 PO DAILY ANA Cyanocobalamin 2,500 mcg 05/18/20 16:00 Vitamin B12 PO DAILY ANA Diphenhydramine HCl 25 - 50 mg 05/18/20 15:00 Benadryl PO Q4H PRN Itching Diphenhydramine HCl 25 - 50 mg 05/18/20 15:00 Benadryl IVPUSH Q4H PRN Itching Fentanyl 10 - 30 mcg 05/18/20 15:00 Sublimaze IVPUSH Q1H PRN Pain Multivitamins/Minerals 10 ml/ 1,013 mls @ 125 mls/hr 05/18/20 16:00 05/18/20 14:51 Thiamine HCl 200 mg/ Chromium/ IV 05/19/20 00:06 125 mls/hr Copper/Manganese/Seleni/Zn 1 ONETIME ONE Administration ml/ Sodium Chloride Sodium Chloride 1,000 mls @ 125 mls/hr 05/18/20 14:30 Normal Saline IV ASDIRECTED [facility] Iopamidol 100 ml 05/18/20 10:22 05/18/20 10:49 Isovue-300 (61%) IV 05/19/20 10:23 100 ml . DIRECTED PRN Administration RADIOLOGY EXAM Iron/Vitamin C 2 tab 05/18/20 16:00 Vitron-C PO DAILY [facility] Morphine Sulfate 1 - 3 mg 05/18/20 15:00 05/18/20 14:56 Morphine IVPUSH 2 mg Q1H PRN Administration Pain Multivitamins/Minerals 1 tab 05/18/20 16:00 Thera M Plus PO DAILY [facility] Naltrexone HCl 25 mg 05/18/20 16:00 Naltrexone PO DAILY [facility] Nicotine 14 mg 05/18/20 15:00 Habitrol TRDERM Q24H PRN SMOKING CESSATION Ondansetron HCl 4 mg 05/18/20 16:00 05/18/20 15:09 Zofran IVPUSH 4 mg Q4H PRN Administration Nausea Pantoprazole Sodium 40 mg 05/18/20 16:00 Protonix PO ACBREAKFAST [facility] Promethazine HCl 12.5 - 25 mg 05/18/20 15:00 Phenergan IV Q8H PRN Nausea Scopolamine 1.5 mg 05/18/20 15:00 Transderm-Scop TOP Q72H PRN Nausea Sertraline HCl 50 mg 05/18/20 16:00 Zoloft PO DAILY [facility] Thiamine HCl 100 mg 05/18/20 16:00 Vitamin B-1 PO BEDTIME [facility] Vitamin B Complex 1 each 05/18/20 16:00 Vitamin B Complex PO DAILY [facility] Discontinued Medications Generic Name Dose Route Start Last Admin Trade Name Freq PRN Reason Stop Dose Admin Hydromorphone HCl 0.5 mg 05/18/20 09:30 05/18/20 09:43 Dilaudid IVPUSH 05/18/20 09:31 0.5 mg ONETIME ONE Administration Sodium Chloride 1,000 mls @ 500 mls/hr 05/18/20 09:45 05/18/20 09:43 Normal Saline IV 500 mls/hr ASDIRECTED ANA Administration Sodium Chloride 76 mls @ 3 mls/sec 05/18/20 10:30 05/18/20 10:49 Normal Saline IV 3 mls/sec ASDIRECTED ANA Administration Lorazepam 1 mg 05/18/20 10:45 05/18/20 11:00 Ativan IVPUSH 05/18/20 10:46 1 mg ONETIME ONE Administration Ondansetron HCl 4 mg 05/18/20 09:30 05/18/20 09:40 Zofran IVPUSH 05/18/20 09:31 4 mg ONETIME ONE Administration Ondansetron HCl 4 mg 05/18/20 15:00 Zofran IVPUSH Q8H PRN Nausea Sodium Chloride 10 ml 05/18/20 10:22 05/18/20 10:49 Saline Flush FLUSH 10 ml ONETIME PRN Administration per radiology protocol - Re-Assessments/Exams Free Text/Narrative Re-Assessment/Exam: 05/18/20 10:31 IV was started, patient was given 0.5 mg of IV Dilaudid and 4 mg of Zofran. This did give her fairly good relief, she stopped vomiting and her labs returned basically normal, that included a CBC, CMP, lactic acid and lipase. CT of the abdomen pelvis with IV contrast was ordered. 05/18/20 12:[address] scan, patient redeveloped nausea and vomiting and was given 1 mg of IV Ativan. IMPRESSION: 1. Apparent mild thickening and stranding of a post anastomotic small bowel loop in the left mid-lower abdomen may reflect a nonspecific focal enteritis. Consider infectious, inflammatory, and less likely ischemic etiologies. 2. Small volume pelvic free fluid of indeterminate etiology. Above results were discussed with Dr. Serna, he decided to admit the patient, keep her n.p.o. and control symptoms to see if she improves. Departure - Departure Time of Disposition: 14:54 Disposition: Admitted As Inpatient 65 Clinical Impression: Abdominal pain Qualifiers: Abdominal location: upper abdomen, unspecified Qualified Code(s): R10.10 - Upper abdominal pain, unspecified Nausea & vomiting Qualifiers: Vomiting Intractability: non-intractable - Discharge Information Sepsis Event Note (ED) - Evaluation Sepsis Screening Result: No Definite Risk - Focused Exam Vital Signs: Vital Signs Temp Pulse Resp BP Pulse Ox 05/18/20 09:13 97.3 F 53 L 16 165/63 H 100 - My Orders Last 24 Hours: My Active Orders 05/18/20 10:22 Iopamidol [Isovue-300 (61%)] 100 ml IV . DIRECTED PRN - Assessment/Plan Last 24 Hours: My Active Orders 05/18/20 10:22 Iopamidol [Isovue-300 (61%)] 100 ml IV . DIRECTED PRN
[2020-05-18] MEDS ORDERED: Sodium Chloride 0.9% 1,000 ML IV SCH ×2 (09:45→14:30)
[2020-05-18] MEDS ORDERED: Sodium Chloride 0.9% 10 ML Syringe FLUSH PRN (10:22)
[2020-05-18] MEDS ORDERED: Iopamidol 612 MG/ML 100 ML Bottle IV PRN (10:22)
[2020-05-18] MEDS ORDERED: LORazepam 2 MG/ML SDV IVPUSH ONE (10:45)
--- NOTE | 2020-05-18 11:39 | CRLCT ---
TECHNIQUE: CT abdomen and pelvis with intravenous contrast, 100 mL of Isovue-300. Coronal and sagittal reformats. INDICATION: Abdominal pain. COMPARISON: None provided. FINDINGS: Imaged lower chest demonstrates right hemidiaphragmatic elevation/eventration. Rounded heterogeneous opacity at the lateral right lung base is indeterminate, but suspicious for rounded atelectasis. Heavy mitral annular calcification. Inferior right hepatic lobe demonstrates a and irregular 2.2 cm hypoattenuating lesion (series 2, image 58), indeterminate but possibly a hemangioma. Hepatic dome 1.8 cm cyst. Additional tiny subcentimeter hypoattenuating hepatic lesions are too small to accurately characterize. Portal and hepatic veins patent. No biliary dilatation. Gallbladder, pancreas, and adrenals are unremarkable. Spleen demonstrates a few tiny hypoattenuated lesions, too small to characterize. Kidneys enhance symmetrically. No hydronephrosis bilaterally. Unremarkable bladder. Uterus surgically absent. Postsurgical changes of Xochitl-en-Y gastric bypass. Post anastomotic small bowel loop in the left mid-lower abdomen appears mildly thickened with slight stranding in the surrounding mesentery (series 2, images 82-108). Remainder of the small bowel and colon appear normal in caliber and enhancement. Small volume pelvic free fluid. No intraperitoneal free air or focal/organized collection. Multiple subcentimeter retroperitoneal lymph nodes. Normal caliber abdominal aorta. Major branch vessels patent. No aggressive osseous lesion. Lower lumbar spondylosis. IMPRESSION: 1. Apparent mild thickening and stranding of a post anastomotic small bowel loop in the left mid-lower abdomen may reflect a nonspecific focal enteritis. Consider infectious, inflammatory, and less likely ischemic etiologies. 2. Small volume pelvic free fluid of indeterminate etiology. Dictated by Maximo Estes MD @ 05/18/2020 11:37:47 AM Please note that all CT scans at this facility use dose modulation, iterative reconstruction, and/or weight-based dosing when appropriate to reduce radiation dose to as low as reasonably achievable. Dictated by: Maximo Estes MD @ 05/18/2020 11:38:00 (Electronically Signed)
[2020-05-18] MEDS: MVI, Adult with Vitamin K 10 ML, Thiamine 200 MG, Chromium/Copper/Mang/Selen/Zn 1 ML in... IV ONE ×8 (14:51→17:00)
[2020-05-18] MEDS ORDERED: Acetaminophen 325 MG Tab PO PRN (14:55)
[2020-05-18] MEDS ORDERED: Nicotine 14 MG/24 Hr Patch TRDERM PRN (15:00)
[2020-05-18] MEDS ORDERED: fentaNYL 100 MCG/2 ML SDV IVPUSH PRN (15:00)
[2020-05-18] MEDS ORDERED: diphenhydrAMINE 25 MG Cap PO PRN (15:00)
[2020-05-18] MEDS ORDERED: Ondansetron 4 MG/2 ML SDV IVPUSH PRN ×2 (15:00→16:00)
[2020-05-18] MEDS ORDERED: diphenhydrAMINE 50 MG/ML SDV IVPUSH PRN (15:00)
[2020-05-18] MEDS ORDERED: Scopolamine 1.5 MG Transdermal Patch TOP PRN (15:00)
[2020-05-18] MEDS ORDERED: Promethazine 25 MG/ML SDV IV PRN (15:00)
[2020-05-18] MEDS ORDERED: Morphine 4 MG/ML Syringe IVPUSH PRN (15:00)
[2020-05-18] MEDS: Sertraline 50 MG Tab PO SCH (16:59)
[2020-05-18] MEDS: Multivitamins with Iron/Calcium/Folic Acid/Minerals Tab PO SCH (17:00)
[2020-05-18] MEDS: Calcium Carbonate/Vitamin D3 1500 MG-400 Units Tab PO SCH ×2 (17:00→22:30)
[2020-05-18] MEDS: Pantoprazole 40 MG Tab.CR PO SCH (17:00)
[2020-05-18] MEDS: Cyanocobalamin (Vitamin B12) 1,000 MCG Tab PO SCH (17:00)
[2020-05-18] MEDS: Ferrous Fumarate/Vitamin C 200-125 MG Tab PO SCH (17:00)
[2020-05-18] MEDS: Thiamine 100 MG Tab PO SCH ×2 (17:00→22:30)
[2020-05-18] MEDS: Naltrexone 50 MG Tab PO SCH (17:00)
[2020-05-18] MEDS: Vitamin B Complex Tab PO SCH (17:00)
[2020-05-18] MEDS: Cholecalciferol (Vitamin D3) 25 MCG Tab PO SCH (17:00)
[2020-05-19 06:54] VITALS: BP 111/52; PULSE 68
[2020-05-19] MEDS: Pantoprazole 40 MG Tab.CR PO SCH (09:13)
[2020-05-19] MEDS: Cholecalciferol (Vitamin D3) 25 MCG Tab PO SCH (09:13)
[2020-05-19] MEDS: Multivitamins with Iron/Calcium/Folic Acid/Minerals Tab PO SCH (09:14)
[2020-05-19] MEDS: Calcium Carbonate/Vitamin D3 1500 MG-400 Units Tab PO SCH (09:14)
[2020-05-19] MEDS: Ferrous Fumarate/Vitamin C 200-125 MG Tab PO SCH (09:14)
[2020-05-19] MEDS: Vitamin B Complex Tab PO SCH (09:14)
[2020-05-19] MEDS: Sertraline 50 MG Tab PO SCH (09:15)
[2020-05-19] MEDS: Naltrexone 50 MG Tab PO SCH (09:15)
[2020-05-19] MEDS: Cyanocobalamin (Vitamin B12) 1,000 MCG Tab PO SCH (09:16)
--- NOTE | 2020-05-20 08:47 | DISCH ---
SUMMARY OF HOSPITAL COURSE: A pleasant 64-year-old female admitted for observation due to abdominal pain. This subsequently resolved. Prior to discharge, her pain was absent. She had no nausea, vomiting, shortness of breath, or chest pain. Tolerating diet without difficulty. Follow up Surgery as needed. HOME MEDICATIONS: No new home medications. The patient will be sent home on same preadmission medications. COMPLICATIONS DURNG THIS HOSPITALIZATION: None. /[id number]
--- NOTE | 2020-05-20 08:47 | PN ---
DATE OF SERVICE: 05/19/2020 SUBJECTIVE: The patient is doing well. Pain is well controlled. No nausea, vomiting, shortness of breath, or chest pain. OBJECTIVE: VITAL SIGNS: Stable. CARDIOVASCULAR: Regular rhythm and rate. RESPIRATORY: Lungs are clear to auscultation bilaterally. ASSESSMENT AND PLAN: Status post abdominal pain. PLAN: The abdominal pain has resolved. The patient is on some clear liquids. We will advance her diet today and consider for discharge later today. Nico Serna MD /[id number]
--- NOTE | 2020-05-20 09:17 | CONS ---
DATE OF SERVICE: 05/18/2020 REFERRING PHYSICIAN: Dheeraj Velasquez MD CONSULTING PHYSICIAN: Nico Serna MD REASON FOR CONSULTATION: Abdominal pain. HISTORY OF PRESENT ILLNESS: A 64-year-old female with intense abdominal pain, nausea, and vomiting for approximately 12 to 24 hours. The patient is still having bowel movements. This is similar to an event she has had in the past a few times, modified by history of Xochitl- en-Y. SOCIAL HISTORY: She is not a smoker. REVIEW OF SYSTEMS: RESPIRATORY: Sleep apnea. GI: Xochitl-en-Y as described above. GENITOURINARY: No abnormalities. GYNECOLOGICAL: History of endometriosis. NEUROLOGICAL: Chronic headaches. PSYCHIATRIC: History of anxiety and depression. The remainder of the review of systems was reviewed and is negative. PHYSICAL EXAMINATION: VITAL SIGNS: Temperature 97.6 with blood pressure 99/44, pulse 69, respirations 16, and 96% on room air. GENERAL: The patient is resting comfortably. HEENT: Pupils are equal. NECK: Supple. LUNGS: Clear. CARDIOVASCULAR: Regular rate. RESPIRATORY: Lungs are clear to consultation bilaterally. ABDOMEN: Bowel sounds positive. Mild tenderness. No rebound. No guarding. IMAGING: I did review the CT scan, which shows mild thickening of the small bowel anastomosis. ASSESSMENT: Abdominal pain. PLAN: The patient will be re-admitted to the hospital, where she will be treated no per os. She will continue the home medications and we will re-evaluate in a.m. Nico Serna MD /[id number]
--- NOTE | 2020-05-20 10:05 | CR ---
Abdomen 2V AP Flat Upright CLINICAL HISTORY: Abdominal pain FINDINGS: Small intestinal gas pattern is nonacute. No free air is identified.. There are surgical clips and sutures in the pelvis. There is masslike density in the right lateral lung base IMPRESSION: Nonacute intestinal gas pattern Masslike density in the lateral right lung base also seen on CT scan. This was also seen on a CT in January 2019 without significant change
== END 2020-05-19 13:00 | disposition home or self-care (01) | DRG 392 ==
LOC: JP.ED 08:47 → JP.MS 12:20
PROVIDERS: ADMIT Surgery; ATTEND Surgery
DX: R10.10 Upper abdominal pain, unspecified (principal); R11.2 Nausea with vomiting, unspecified; R10.9 Unspecified abdominal pain; H54.7 Unspecified visual loss; G47.30 Sleep apnea, unspecified; K21.9 Gastro-esophageal reflux disease without esophagitis; G89.29 Other chronic pain; M54.9 Dorsalgia, unspecified; M54.2 Cervicalgia; M19.90 Unspecified osteoarthritis, unspecified site; F41.9 Anxiety disorder, unspecified; E61.1 Iron deficiency; F32.9 Major depressive disorder, single episode, unspecified; M85.80 Other specified disorders of bone density and structure, unspecified site; E53.8 Deficiency of other specified B group vitamins; Z96.659 Presence of unspecified artificial knee joint; Z98.84 Bariatric surgery status; Z79.899 Other long term (current) drug therapy; Z90.710 Acquired absence of both cervix and uterus
CPT/HCPCS: 36415; 74177; 80053; 83605; 83690; 85025; J1170; J2060; J2405; J7030; Q9967; 74019; 74019-26; 80048; 96374; 96375; 99285-25; A9270-GY; J2270; J3411

== ENCOUNTER 2023-04-02 08:32 | Day surgery (SDC) | payer MEDICARE ==
[2023-04-02] MEDS ORDERED: Lactated Ringers 1,000 ML IV SCH (09:00)
[2023-04-02] MEDS ORDERED: Propofol 200 MG/20 ML SDV ONE ×2 (10:00→10:47)
[2023-04-02] MEDS ORDERED: fentaNYL 50 MCG/ML SDV ONE (10:00)
[2023-04-02] MEDS ORDERED: Midazolam 1 MG/ML 2 ML SDV ONE (10:00)
[2023-04-02 12:35] VITALS: BP 125/67; PULSE 97
== END 2023-04-02 12:51 | disposition home or self-care (01) ==
LOC: JP.SDS 08:32
PROVIDERS: ATTEND Student in an Organized Health Care Education/Training Program
DX: Z12.11 Encounter for screening for malignant neoplasm of colon (principal); K21.9 Gastro-esophageal reflux disease without esophagitis; K29.70 Gastritis, unspecified, without bleeding; K31.A19 Gastric intestinal metaplasia without dysplasia, unspecified site; G47.33 Obstructive sleep apnea (adult) (pediatric); R91.8 Other nonspecific abnormal finding of lung field; M79.7 Fibromyalgia; F41.9 Anxiety disorder, unspecified; F10.10 Alcohol abuse, uncomplicated; D64.9 Anemia, unspecified; E66.9 Obesity, unspecified; Z79.899 Other long term (current) drug therapy; Z80.0 Family history of malignant neoplasm of digestive organs; Z98.0 Intestinal bypass and anastomosis status; Z68.33 Body mass index [BMI] 33.0-33.9, adult
CPT/HCPCS: 43239; 88305; G0121; J2250; J2704; J3010; J7120

== ENCOUNTER 2024-02-08 07:35 | Day surgery (SDC) | payer MEDICARE ==
[~2024-02-08 07:35] MED LIST: Propofol 200 MG/20 ML SDV ONE; fentaNYL 100 MCG/2 ML SDV ONE
[2024-02-08] MEDS: Sodium Chloride 0.9% 1,000 ML IV SCH (08:08)
[2024-02-08 10:13] VITALS: BP 140/73; PULSE 64
== END 2024-02-08 10:35 | disposition home or self-care (01) ==
LOC: JP.SDS 07:35
PROVIDERS: ATTEND Surgery
DX: K22.70 Barrett's esophagus without dysplasia (principal); K22.89 Other specified disease of esophagus; G47.33 Obstructive sleep apnea (adult) (pediatric); E66.9 Obesity, unspecified
CPT/HCPCS: 00731-QZ; 88305; J2704; J3010; J7030

== ENCOUNTER 2025-01-10 23:20 | Emergency (ER) | payer MEDICARE ==
[2025-01-11 01:25] LABS: BASOPHILS PERCENT AUTO 0.5 % (0.1-1.3); EOSINOPHILS PERCENT AUTO 0.3 % (0.0-5.4); IMMATURE GRAN PERCENT AUTO 0.3 % (0.0-0.7); LYMPHOCYTES ABSOLUTE AUTO 0.17 K/uL (0.8-3.3); LYMPHOCYTES PERCENT AUTO 4.4 % (11.4-47.7); MONOCYTES ABSOLUTE AUTO 0.04 K/uL (0.20-0.90); MONOCYTES PERCENT AUTO 1.0 % (3.3-12.6); NEUTROPHILS ABSOLUTE AUTO 3.60 K/uL (1.0-7.6); NEUTROPHILS PERCENT AUTO 93.5 % (40.0-78.1); PLATELET COUNT,PLT 153 K/uL (130-375); RED BLOOD CELL COUNT 4.01 M/uL (3.77-5.24); WHITE BLOOD CELL COUNT,WBC 3.9 K/uL (3.2-11.0)
[2025-01-11 01:28] LABS: BASOPHILS ABSOLUTE AUTO 0.02 K/uL (0.00-0.10); EOSINOPHILS ABSOLUTE AUTO 0.01 K/uL (0.00-0.40); IMMATURE GRAN ABSOLUTE AUTO 0.01 K/uL (0.00-0.23)
[2025-01-11 01:45] LABS: A/G RATIO 1.3 (1.2-2.2); ALANINE AMINOTRANSFERASE,ALT 26 U/L (12-78); ASPARTATE AMNIOTRANSFERASE,AST 20 U/L (15-37); BILIRUBIN TOTAL 0.5 mg/dL (0.2-1.0); BLOOD UREA NITROGEN,BUN 20 mg/dL (7-18); CARBON DIOXIDE,CO2 29 mmol/L (21-32); CHLORIDE,CL 106 mmol/L (100-108); CREATININE 0.8 mg/dL (0.6-1.0); EST CRCL DRUG DOSING (CG) 54.13 mL/min; ESTIMATED GFR 79 mL/min (>60); GLUCOSE RANDOM 113 mg/dL (74-106); POTASSIUM,K 3.7 mmol/L (3.6-5.2); PROTEIN TOTAL,TP 5.7 g/dL (6.4-8.2); SODIUM,NA 142 mmol/L (140-148)
[2025-01-11] MEDS: Sodium Chloride 0.9% 10 ML Syringe FLUSH PRN ×2 (01:48→02:26)
[2025-01-11] MEDS: Iopamidol 612 MG/ML 100 ML Bottle IV SCH (02:26)
[2025-01-11] MEDS ORDERED: Naloxone 0.4 MG/ML SDV IVPUSH PRN (02:59)
[2025-01-11] MEDS: Ondansetron 4 MG/2 ML SDV IVPUSH ONE (03:26)
[2025-01-11 06:14] LABS: LACTIC ACID 1.4 mmol/L (0.4-2.0)
[2025-01-11] MEDS: Ketorolac 30 MG/ML SDV IVPUSH ONE (07:38)
[2025-01-11 08:32] VITALS: BP 84/49; PULSE 106
== END 2025-01-11 08:44 ==
LOC: JP.ED 23:20
DX: K52.9 Noninfective gastroenteritis and colitis, unspecified (principal); K21.9 Gastro-esophageal reflux disease without esophagitis; E66.9 Obesity, unspecified; Z79.899 Other long term (current) drug therapy; Z90.710 Acquired absence of both cervix and uterus; Z68.34 Body mass index [BMI] 34.0-34.9, adult
CPT/HCPCS: 36415; 74177; 80053; 82272; 83605; 85025; 86140; 87040; 87077; 87186; 96361; 96365; 96375; 99285; J1885; J2405; J2543; J7030; Q9967; J1171

== ENCOUNTER 2025-03-22 07:08 | Day surgery (SDC) | payer MEDICARE ==
[2025-03-22] MEDS ORDERED: fentaNYL 100 MCG/2 ML SDV ONE (07:20)
[2025-03-22] MEDS ORDERED: Propofol 200 MG/20 ML SDV ONE (07:20)
[2025-03-22] MEDS: Lactated Ringers 1,000 ML IV SCH (08:29)
[2025-03-22 10:30] VITALS: BP 129/66; PULSE 69
== END 2025-03-22 10:56 | disposition home or self-care (01) ==
LOC: JP.SDS 07:08
PROVIDERS: ATTEND Surgery
DX: K22.70 Barrett's esophagus without dysplasia (principal); E66.9 Obesity, unspecified; Z98.0 Intestinal bypass and anastomosis status; Z68.30 Body mass index [BMI] 30.0-30.9, adult; Z79.899 Other long term (current) drug therapy
CPT/HCPCS: 00731; 43239; 88305; J2704; J3010; J7120